=== PATIENT | male | born 1990 | race Two or more races ===

== ENCOUNTER 2020-05-14 14:50 | Emergency (ER) | payer SELFPAY ==
[~2020-05-14] VITALS: Ht 157.5 cm; Wt 81.6 kg
[~2020-05-14 14:50] MED LIST: CEPH-37 PO; METR500T PO
[2020-05-14 14:51] VITALS: BP 118/68
== END 2020-05-14 16:29 | disposition home or self-care (01) ==
LOC: ER 14:50
DX: U07.1 COVID-19 (principal); J20.9 Acute bronchitis, unspecified; F17.210 Nicotine dependence, cigarettes, uncomplicated
CPT/HCPCS: 36415; 71045; 87426

== ENCOUNTER 2021-01-11 01:18 | Emergency (ER) | payer OTHER ==
[~2021-01-11] VITALS: Ht 162.6 cm; Wt 72.6 kg
[2021-01-11] MEDS ORDERED: IBUPROFEN 800 MG TAB PO ONE (04:30)
[2021-01-11 05:03] VITALS: BP 113/63
== END 2021-01-11 06:30 | disposition home or self-care (01) ==
LOC: ER 01:24
DX: S39.012A Strain of muscle, fascia and tendon of lower back, initial encounter (principal); S13.4XXA Sprain of ligaments of cervical spine, initial encounter; M25.561 Pain in right knee; M54.2 Cervicalgia; J45.909 Unspecified asthma, uncomplicated; F17.210 Nicotine dependence, cigarettes, uncomplicated; Z98.890 Other specified postprocedural states; Z79.899 Other long term (current) drug therapy; V49.59XA Passenger injured in collision with other motor vehicles in traffic accident, initial encounter; Y93.89 Activity, other specified; Y92.488 Other paved roadways as the place of occurrence of the external cause; Y99.8 Other external cause status
CPT/HCPCS: 72040; 72100; 73562